=== PATIENT | female | born 1995 | race Caucasian/White ===

== ENCOUNTER 2024-11-11 13:33 | Inpatient (IN) | payer BC ==
[2024-11-13] MEDS ORDERED: OXYTOCIN 10 UNIT/ML 1 ML VIAL IM PRN (06:31)
[2024-11-13] MEDS ORDERED: CARBOPROST TROMETHAMINE 250 MCG/ML 1 ML AMP IM PRN (06:31)
[2024-11-13] MEDS ORDERED: METHYLERGONOVINE 0.2 MG/ML 1 ML AMP IM PRN (06:31)
[2024-11-13] MEDS ORDERED: TRANEXAMIC 1,000 MG/100ML-NACL 1,000 MG in EMPTY BAG 1 BAG IV PRN (06:31)
[2024-11-13] MEDS ORDERED: TERBUTALINE 1 MG/ML VIAL SQ PRN (06:31)
[2024-11-13 06:41] VITALS: RESP 16
[2024-11-13] MEDS: LACTATED RINGERS 1,000 ML IV SCH (06:47)
[2024-11-13] MEDS: OXYTOCIN 30 UNITS/500 ML NS 30 UNIT in SALINE 1 500ML.BAG IV SCH (06:47)
[2024-11-13 06:51] LABS: Basophils # (A) 0.05 10*3/uL (0.00-0.10); Basophils % (A) 0.6 %; Eosinophils # (A) 0.20 10*3/uL (0.04-0.35); Eosinophils % (A) 2.2 %; HCT 38.7 % (37.2-46.3); HGB 13.6 g/dL (12.0-15.0); Lymphocytes # (A) 2.15 10*3/uL (0.90-5.00); Lymphocytes % (A) 24.1 %; MCH 31.5 pg (27.0-32.0); MCHC 35.1 g/dL (32.0-37.0); MCV 89.6 fL (80.0-97.0); Monocytes # (A) 0.71 10*3/uL (0.20-1.00); Monocytes % (A) 8.0 %; Neutrophils # (A) 5.72 10*3/uL (1.80-7.70); Neutrophils % (A) 64.1 %; Platelet Count 260 10*3/uL (140-440); RBC 4.32 10*6/uL (4.10-5.20); RDW 11.9 % (11.5-14.5); WBC 8.92 10*3/uL (4.50-10.00)
[2024-11-13] MEDS ORDERED: BUTORPHANOL 1 MG/ML 1 ML VIAL IV PRN (08:55)
--- NOTE | 2024-11-13 09:01 | P.HPOB ---
History of Present Illness H&P Date: 11/13/24 Chief Complaint: 40 and 1 sevenths weeks intrauterine , induction The patient is a 29-year-old 1 para 0 admitted at 40 and 1 sevenths weeks as established by last menstrual period and confirmed by 13-week ultrasound. She is admitted for postdates induction of labor with all signs reassuring, category 1 heart rate tracing. Her has been ent irely uncomplicated and group B strep status is negative. She did have spontaneous rupture of membranes this morning prior to my arrival. Obstetrical history: 1 para 0 with current statistics listed in history of present illness. EDC of 11/12/2024 was established by last menstrual period and confirmed by 13-week ultrasound. Laboratory workup demonstrates a blood type of B+ with a negative antibody screen. Rubella status is immune. The remainder of the laboratory workup was within normal limits. 1 hour Glucola was initially elevated and followed up with a normal 3-hour glucose tolerance test. Group B strep status is negative. Gynecologic history: Unremarkable with no history of any infections to include STDs. Review of Systems Review of systems is confined to history of present illness. Past Medical History History of Any Multi-Drug Resistant Organisms: None Reported Past Surgical History: Tonsillectomy Past Anesthesia/Blood Transfusion Reactions: No Reported Reaction Past Psychological History: No Psychological Hx Reported Smoking Status: Never smoker Past Drug Use History: None Reported Medications and Allergies Home Medications Medication Instructions Recorded Confirmed Type Aspirin [[place] Aspirin EC] 1 tab PO DAILY 11/13/24 11/13/24 History Vit No.179/Iron/Folic 1 tab PO DAILY 11/13/24 11/13/24 History [ Tablet] Allergies Allergy/AdvReac Type Severity Reaction Status Date / Time latex Allergy Rash/Hives Verified 11/13/24 06:30 tetracycline Allergy Anaphylaxis Verified 11/13/24 06:30 Exam Vital Signs Temp Pulse Resp BP Pulse Ox 11/13/24 06:27 96.7 F L 77 16 131/84 98 Intake and Output 11/12/24 11/13/24 11/13/24 22:59 06:59 14:59 Other: Weight 73.936 kg In general, this is a well-developed, well-nourished white female in no acute distress. Her heart has a regular rhythm and rate without murmur. Her lungs clear to auscultation bilaterally in all collins. Her abdomen is gravid, nondistended, has normal active bowel sounds, soft, nontender, and without any palpable masses aside from uterine fundus. Her extremities are without any cyanosis, clubbing, or edema and are nontender to palpation bilaterally. Digital cervical examination performed by the nursing staff demonstrates her cervix to be 3 cm dilated, 80% effaced, with the vertex and presentation at 0 station. Clear fluid is noted. Results Result Diagrams: 11/13/24 06:30 Abnormal Lab Results - Last 24 Hours (Table) 11/13/24 Range/Units 06:30 Immature Gran # 0.09 H (0.00-0.04) 10*3/uL Assessment and Plan (1) Post-dates Current Visit: Yes Status: Acute Code(s): O48.0 - POST-TERM SNOMED Code(s): 95912158 Plan: The patient is admitted for Pitocin induction of labor. Pitocin augmentation has been started and she has had spontaneous rupture of membranes. She will have close maternal and surveillance and expectant management will be practiced. She is a good candidate for either IV or epidural analgesia, chart she may choose.
[2024-11-13] MEDS ORDERED: fentaNYL (PF) 50 MCG/ML 5 ML AMP ONE (10:53)
[2024-11-13] MEDS ORDERED: SODIUM CHLORIDE 0.9% 250 ML BAG ONE (10:53)
[2024-11-13] MEDS ORDERED: ROPIVACAINE 5 MG/ML 30 ML VIAL ONE (10:53)
[2024-11-13] MEDS: LIDOCAINE 0.5% (PF) 5 MG/ML (50 ML SDV) SQ PRN (14:00)
[2024-11-13] MEDS ORDERED: BENZOCAINE/MENTHOL SPRAY 1 GM/SPRAY AEROSOL TOPICAL PRN (14:20)
[2024-11-13] MEDS ORDERED: SIMETHICONE 80 MG CHEWABLE PO PRN (14:20)
[2024-11-13] MEDS ORDERED: diphenhydrAMINE 50 MG/ML 1 ML VIAL IVP PRN ×2 (14:20)
[2024-11-13] MEDS ORDERED: diphenhydrAMINE 25 MG CAP PO PRN (14:20)
[2024-11-13] MEDS ORDERED: ZOLPIDEM 5 MG TAB PO PRN (14:20)
[2024-11-13] MEDS ORDERED: LANOLIN CREAM 1 GM TUBE TOPICAL PRN (14:20)
[2024-11-13] MEDS ORDERED: HYDROCORTISONE 2.5% RECTAL CREAM 30 GM TUBE RECTAL PRN (14:20)
--- NOTE | 2024-11-13 14:24 | P.PROBDLV ---
Vaginal Delivery Note - . Vaginal Delivery Note: The patient is a 29-year-old 1 para 0 admitted at 40 and 1 sevenths weeks by good dating parameters. She is admitted for postdates induction of labor with all signs reassuring, category 1 heart rate tracing. Her has been entirely uncomplicated and group B strep status is negative. On labor and delivery, she had Pitocin started and had spontaneous rupture of membranes for clear fluid just prior to my arrival. She progressed to the active phase of labor and had an epidural catheter placed for analgesia. She then progressed fairly quickly through the active phase of labor to complete. She pushed over the course of just over 1-1/2 hours to a normal spontaneous vaginal delivery of a viable 7 pound 3 ounce baby girl with Apgars of 8 at 1 minute and 9 at 5 minutes delivered in the direct occiput anterior position. The placenta was delivered spontaneously, intact, and grossly normal with a grossly normal, centrally inserted three-vessel cord. There was a second-degree midline perineal laceration with a first degree extension to the right labia majora which was repaired continuously using 3-0 chromic catgut without difficulty. Estimated blood loss for the case was approximate 150 mL. There were no complications. All sponge, instrument, and needle counts were correct. Both mother and infant are resting comfortably in recovery.
[2024-11-13] MEDS ORDERED: OXYTOCIN 30 UNITS/500 ML NS 30 UNIT in SALINE 1 500ML.BAG IV SCH (14:30)
[2024-11-13] MEDS: IBUPROFEN 800 MG TAB PO PRN (15:39)
[2024-11-13] MEDS: SENNOSIDES-DOCUSATE SODIUM 1 EACH TAB PO SCH (20:11)
[2024-11-13] MEDS: ACETAMINOPHEN TAB 500 MG TAB PO PRN (22:58)
[2024-11-14 06:33] LABS: Basophils # (A) 0.06 10*3/uL (0.00-0.10); Basophils % (A) 0.5 %; Eosinophils # (A) 0.10 10*3/uL (0.04-0.35); Eosinophils % (A) 0.8 %; HCT 34.6 % (37.2-46.3); HGB 12.0 g/dL (12.0-15.0); Lymphocytes # (A) 2.30 10*3/uL (0.90-5.00); Lymphocytes % (A) 18.1 %; MCH 31.7 pg (27.0-32.0); MCHC 34.7 g/dL (32.0-37.0); MCV 91.5 fL (80.0-97.0); Monocytes # (A) 0.95 10*3/uL (0.20-1.00); Monocytes % (A) 7.5 %; Neutrophils # (A) 9.23 10*3/uL (1.80-7.70); Neutrophils % (A) 72.3 %; Platelet Count 230 10*3/uL (140-440); RBC 3.78 10*6/uL (4.10-5.20); RDW 11.9 % (11.5-14.5); WBC 12.74 10*3/uL (4.50-10.00)
--- NOTE | 2024-11-14 08:53 | P.DS ---
Providers Date of admission: 11/13/24 06:08 Expected date of discharge: 11/14/24 Attending physician: Erik Hernandez Primary care physician: Stated None - Discharge Diagnosis(es) (1) Post-dates Current Visit: Yes Status: Acute (2) Normal spontaneous vaginal delivery Current Visit: Yes Status: Acute Hospital Course: The patient is a 29-year-old 1 para 0 admitted at 40 and 1 sevenths weeks by good dating parameters. She is admitted for induction with all signs reassuring. Her was uncomplicated and group B strep status is negative. On labor delivery, she had Pitocin started and experience spontaneous rupture of membranes for clear fluid. She made rapid progress through the active phase of labor to complete and then pushed over the course of approximately 90 minutes to a normal spontaneous vaginal delivery of a viable 7 pound 3 ounce baby girl with Apgars of 8 at 1 minute and 9 at 5 minutes. Her course was unremarkable with vital signs remaining stable and her temperature was afebrile throughout. She was deemed stable for discharge by day #1 and was discharged home to follow-up in the office in 6 weeks time routinely. Discharge instructions included calling for any significantly increased bleeding or foul-smelling lochia, significantly increased fever or abdominal pain, perineal complaints, breast complaints, or anything else that concerned her. She was additionally instructed to have nothing in the vagina for at least 6 weeks time to include intercourse. She understood her instructions and agrees to follow-up as noted above. Discharge medications included continued vitamins as she has opted to breast-feed. She was otherwise to use [id number] analgesic pain medications as needed. Maternal blood type is B+ and rubella status is immune. Procedures: #1. Pitocin induction #2. Epidural analgesia #3. Normal spontaneous vaginal delivery #4. Repair of perineal laceration Patient Condition at Discharge: Stable Plan - Discharge Summary New Discharge Prescriptions: No Action Vit No.179/Iron/Folic [ Tablet] 1 tab PO DAILY Aspirin [[place] Aspirin EC] 1 tab PO DAILY Discharge Medication List Aspirin [[place] Aspirin EC] 1 tab PO DAILY 11/13/24 [History] Vit No.179/Iron/Folic [ Tablet] 1 tab PO DAILY 11/13/24 [History] Follow up Appointment(s)/Referral(s): Erik Hernandez MD [STAFF PHYSICIAN] - 12/27/24 1:45 pm Discharge Disposition: HOME SELF-CARE
[2024-11-14 08:57] VITALS: BP 118/73; PULSE 80; TEMP 98.3
== END 2024-11-14 16:26 | disposition home or self-care (01) | DRG 807 ==
LOC: 4FBP 11-13 06:08
PROVIDERS: ADMIT Obstetrics & Gynecology; ATTEND Obstetrics & Gynecology
PROC: 10E0XZZ Delivery of Products of Conception, External Approach (ICD-10-PCS; principal; 2024-11-13)
PROC: 3E033VJ Introduction of Other Hormone into Peripheral Vein, Percutaneous Approach (ICD-10-PCS; 2024-11-13)
DX: O48.0 Post-term pregnancy (principal); Z37.0 Single live birth; Z79.82 Long term (current) use of aspirin
CPT/HCPCS: 85025; 86850; 86900; 86901